=== PATIENT | male | born 1965 | race Caucasian/White ===

== ENCOUNTER 2024-04-19 08:05 | Day surgery (SDC) | payer OTHER ==
[2024-04-16 16:10] LABS: Absolute Eosinophils 0.1 K/uL (0-0.5); Absolute Lymphocytes (CBC) 1.8 K/uL (0.7-4.9); Absolute Monocytes 0.8 K/uL (0.1-1.3); Absolute Neutrophil 5.3 K/uL (1.8-8.0); Basophils % 0.4 % (0-1.3); Eosinophils % 1.2 % (0-4.4); Hematocrit 46.9 % (39.6-49.0); Hemoglobin 15.8 g/dL (13.6-17.9); Lymphocytes % 22.7 % (15.3-44.8); MCH 30.8 pg (27.0-35.0); MCHC 33.6 g/dL (32.0-36.0); MCV 91.7 fL (80-100); MPV 8.6 fL (7.6-11.3); Monocytes % 9.9 % (3.3-12.3); Neutrophils % 65.8 % (41.7-73.7); Platelets 179 thou/uL (152-406); RBC Red Blood Cell Count 5.11 M/uL (4.33-5.43); Red Cell Distribution Width 15.4 % (12.1-15.2)
[2024-04-19] MEDS ORDERED: SUCCINYLCHOLINE 20 MG/ML (10 ML) IV ONE (08:57)
[2024-04-19] MEDS ORDERED: ONDANSETRON 4 MG/2 ML VIAL ONE (08:57)
[2024-04-19] MEDS ORDERED: LIDOCAINE 2% MPF 5 ML VIAL ONE (08:57)
[2024-04-19] MEDS ORDERED: FENTANYL CITR 100 MCG/2 ML ONE (08:58)
[2024-04-19] MEDS ORDERED: MIDAZOLAM HCL 2 MG/2 ML INJ ONE (08:58)
[2024-04-19] MEDS ORDERED: propofoL 200 MG/20 ML VIAL IV ONE (08:58)
[2024-04-19] MEDS ORDERED: ROCURONIUM 50 MG/5 ML VIAL IV ONE (08:58)
[2024-04-19] MEDS ORDERED: SUGAMMADEX SODIUM 200 MG/2 ML VIAL IV ONE (09:07)
[2024-04-19] MEDS: CEFAZOLIN SODIUM 2 GM/VIAL ONE (09:23)
[2024-04-19] MEDS: LIDOCAINE HCL/EPINEPHRINE 20 ML MDV ONE (09:23)
[2024-04-19] MEDS: Ringers Lactate 1,000 ML IV ONE (09:24)
[2024-04-19] MEDS ORDERED: dexAMETHasone 10 MG/ML VIAL ONE (09:50)
[2024-04-19] MEDS ORDERED: EPHEDRINE SULF 50 MG/ML VIAL ONE (10:02)
--- NOTE | 2024-04-19 10:43 | P.OP ---
Preoperative diagnosis: Umbilical Hernia Postoperative diagnosis: Umbilical Hernia Primary procedure: Laparoscopic Umbilical Hernia Repair with MEsh Anesthesia: GETA + Local Estimated blood loss: <5cc Specimen: Hernia Contents Findings: Incarcerated adipose in ~1.5cm umbilical hernia Complications: None Implants: Bard 11.4cm Round Ventralite ST, Aborbatack x 45 tacks Transferred to: Recovery Room Condition: Good
[2024-04-19] MEDS: HYDROMORPHONE HCL 1 MG/ML INJ ONE ×2 (11:09→11:16)
[2024-04-19] MEDS: FENTANYL CITR 100 MCG/2 ML ONE (11:24)
[2024-04-19 13:03] VITALS: BP 105/61; TEMP 97; O2SAT 97
--- NOTE | 2024-04-19 15:44 | OP ---
Date of Procedure: 04/19/2024 Surgeon: Katina Sen MD, Preoperative Diagnosis: Umbilical hernia. Postoperative Diagnosis: Umbilical hernia. Procedure Performed: Laparoscopic umbilical hernia repair with mesh. Anesthesia: General endotracheal plus local with 1% lidocaine with epinephrine. Estimated Blood Loss: Less than 5 cc. Specimen: Hernia contents which is adipose tissue. Findings: Incarcerated adipose within a 1.5 cm contained umbilical hernia. Complications: None. Implants: Bard Ventralight ST mesh with Echo Positioning System, 11.4 cm round mesh utilized and [employer] AbsorbaTack x45 tacks utilized. Disposition: Patient transferred to recovery room in good condition. Procedure In Detail: After informed consent was obtained, patient brought to the operating room, pre pped and draped in the usual sterile fashion. After adequate anesthesia was achieved, I anesthetized an area of the left upper quadrant down to subcutaneous tissue. 5 mm 0 degree optical trocar was in troduced in the abdomen without incident or complication. Insufflation was obtained to 15 mmHg, at t his time. There was no injury to vital structures upon entry in the abdomen. Additional trocar was placed in the left lower quadrant. This was similarly anesthetized, sharply incised. A 5 mm trocar was placed under direct visualization without incident or complication. At this point, I used the [email or web address] gaSCardiosolutions device to take down adipose tissue from preperitoneal position at the umbilical hernia which w as approximately 1.5 cm in size. It was removed and sent off for pathologic examination. The preper itoneal fat was then swept back to allow for appropriate landing zone of the mesh, which was sized 11 .4 cm round Bard Ventralight mesh was utilized. At this point, it was brought into the field. I the n proceeded to close the hernia defect using an Endo Stitch with an 0 V-Loc suture, imbricating the h ernia sac with good approximation of tissues. I then deployed the Bard Ventralight ST Echo Positioni ng System 11.4 cm round mesh utilized at the superior umbilical position after using a stab incision and passing it through, I deployed the balloon system and secured the mesh in a single crown using th e AbsorbaTack absorbable fixation tack system. I then removed the balloon deployment system, found i t to be intact on the back table. I then continued to place a double crown type orientation of a tot al of 45 tacks to the anterior abdominal wall with good approximation of the mesh to the abdominal wa ll. At this point, the abdomen was partially desufflated. The mesh remained in good position. I th en closed the 12 mm trocar site using a Uli-Zoya suture passer with an 0 Vicryl in an interrup katina fashion with good approximation of tissues. The abdomen was then desufflated under direct visual ization without incident or complication. All skin incisions were then copiously irrigated, and clos ed with a 4-0 Monocryl in a running fashion. Dermabond was placed over top. Patient tolerated the p rocedure without incident or complication. Transferred to PACU in good condition. All counts were c orrect at the end of the case. TIFFANIE/IVAN Voice ID: [id number] Report ID: [id number]
== END 2024-04-19 12:27 | disposition home or self-care (01) ==
LOC: OR 08:05
PROVIDERS: ATTEND Surgery
PROC: 0WUF4JZ Supplement Abdominal Wall with Synthetic Substitute, Percutaneous Endoscopic Approach (ICD-10-PCS; principal; 2024-04-19 09:15)
DX: K42.9 Umbilical hernia without obstruction or gangrene (principal)
CPT/HCPCS: 85025; 80048; 36415; 88302; 49591; J2704; J2001; J2250; J3010 ×2; J1100; J1170 ×2; J2405; J7120; C1781